=== PATIENT | female | born 1995 | race Caucasian/White ===

== ENCOUNTER 2017-01-02 10:06 | Emergency (ER) | payer OTHER ==
[~2017-01-02] VITALS: Ht 170.2 cm; Wt 68.0 kg
[~2017-01-02 10:06] MED LIST: CLARITIN10 MG PO; DEPO-PROVE150 MG/11 IM; TEARS NATURALE1 EACH OPHTHALMIC
[2017-01-02 10:49] LABS: ABSOLUTE NEUTROPHILS 4.9 thou/uL (1.4-8.2); BASOPHILS 0.5 % (0.0-2.0); EOSINOPHILS 2.3 % (0.0-3.0); HEMATOCRIT 39.5 % (37.0-47.0); HEMOGLOBIN 13.3 gm/dL (12.0-15.0); MCH 29.2 pg (26.0-34.0); MCHC 33.8 g/dL (28.0-37.0); MCV 86.4 fL (80.0-100.0); MONOCYTES 8.1 % (1.0-8.0); PLATELET COUNT 233 thou/uL (150-400); POLYS 62.1 % (36.0-66.0); RBC 4.57 mil/uL (4.20-5.00); RDW 13.1 % (10.5-14.5); WBC 7.9 thou/uL (4.0-11.0)
[2017-01-02 10:50] LABS: MANUAL DIFF NO
[2017-01-02 10:57] LABS: ANION GAP 6 mmol/L (7-16); BUN 6 mg/dL (7-18); CALCIUM 9.3 mg/dL (8.5-10.1); CHLORIDE 106 mmol/L (98-107); CO2 25 mmol/L (21-32); CREATININE 0.8 mg/dL (0.6-1.0); GLUCOSE 105 mg/dL (74-106); SODIUM 137 mmol/L (136-145)
[2017-01-02 11:02] LABS: ALBUMIN 4.1 g/dL (3.4-5.0); ALKALINE PHOSPHATASE 81 U/L (46-116); DIRECT BILIRUBIN < 0.1 mg/dL (<0.1-0.3); SGOT 9 U/L (15-37); SGPT 26 U/L (30-65); TOTAL BILIRUBIN 0.2 mg/dL (<0.1-1.0); TOTAL PROTEIN 7.7 g/dL (6.4-8.2)
[2017-01-02 11:04] LABS: URINE BILIRUBIN NEGATIVE (Negative); URINE BLOOD 3+ (Negative); URINE COLOR YELLOW; URINE GLUCOSE-RANDOM* NEGATIVE (Negative); URINE KETONES NEGATIVE (Negative); URINE NITRITE NEGATIVE (Negative); URINE PROTEIN (DIPSTICK) NEGATIVE (Negative); URINE SPECIFIC GRAVITY 1.025 (1.003-1.035); URINE UROBILINOGEN 0.2 E.U./dl (0.2-1.0)
[2017-01-02 11:47] LABS: SQUAMOUS >10 Many /LPF (0-3)
[2017-01-02 11:48] LABS: CASTS None Seen /LPF (None Seen); CRYSTALS None Seen /LPF (None Seen)
[2017-01-02 11:49] LABS: URINE RBC 3-10 Few /HPF (0-2); URINE WBC 0-5 Rare /HPF (0-5)
[2017-01-02] MEDS ORDERED: NORCO 5-325 TA1 EACH PO (12:29)
[2017-01-02] MEDS ORDERED: NAPROSYN500 MG PO (12:29)
[2017-01-02 12:41] VITALS: BP 108/65
[2017-01-03 21:09] LABS: CHLAMYDIA TRACHOMATIS-PCR Negative (Negative); NEISSERIA GONORRHEA-PCR Negative (Negative)
== END 2017-01-02 12:47 | disposition home or self-care (01) ==
LOC: ER 10:06
PROVIDERS: Nurse Practitioner
DX: N93.8 Other specified abnormal uterine and vaginal bleeding (principal); R10.2 Pelvic and perineal pain